=== PATIENT | male | born 1990 | race Hispanic/Latino ===

== ENCOUNTER 2024-05-19 16:08 | Inpatient (IN) | payer SELFPAY ==
[~2024-05-19] VITALS: Ht 172.7 cm; Wt 85.6 kg
--- NOTE | 2024-05-19 16:16 | ERN ---
ED Note History of Present Illness Stated Complaint: NAUSEA\VOMITTING Chief Complaint: Nausea,Vomiting,Diarrhea Time Seen by MD: 16:11 Dictation: PATIENT IS A 33-YEAR-OLD MALE COMING IN TODAY WITH COMPLAINTS OF EPIGASTRIC PAIN WITH NAUSEA VOMITING ONSET WAS LAST NIGHT. NO FEVER NO CHILLS NO CHEST PAIN. PATIENT STATES HE DOES USE MARIJUANA FREQUENTLY AND SMOKED YESTERDAY. Allergies: Coded Allergies: No Known Drug Allergies (Unverified Allergy, Unknown, 05/19/24) Past Medical History RN Note Reviewed/Agreed w/PFSH: Yes Review of System Dictation CONSTITUTIONAL: NEGATIVE EXCEPT FOR HPI HEAD/FACE: NEGATIVE EXCEPT FOR HPI EENT: NEGATIVE EXCEPT FOR HPI RESPIRATORY: NEGATIVE EXCEPT FOR HPI GASTROINTESTINAL/ABDOMINAL: NEGATIVE EXCEPT FOR HPI EPIGASTRIC PAIN WITH NAUSEA VOMITING GENITOURINARY: NEGATIVE EXCEPT FOR HPI MUSCULOSKELETAL: NEGATIVE EXCEPT FOR HPI INTEGUMENTARY: NEGATIVE EXCEPT FOR HPI NEUROLOGICAL/PSYCH: NEGATIVE EXCEPT FOR HPI HEMATOLOGIC/LYMPHATIC: NEGATIVE EXCEPT FOR HPI ALL SYSTEMS NEGATIVE, EXCEPT NOTED ABOVE. 13 POINT REVIEW OF SYSTEMS ASSESSED AND ALL NEGATIVE EXCEPT FOR ABOVE. Initial Vital Sign VS Vital Signs Date Time Temp Pulse Resp B/P (MAP) Pulse Ox O2 Delivery O2 Flow Rate FiO2 05/19/24 16:10 97.3 0 05/19/24 17:45 71 20 152/83 100 Room Air* 21 Physical Exam Dictation VITAL SIGNS REVIEWED GENERAL APPEARANCE: ALERT, ORIENTED X 3, PATIENT NOW ALERT SOMNOLENT. HEAD AND FACE: NON-TRAUMATIC. EYES: PERRL, PINK CONJUNCTIVAS, EYELID NO TRAUMA, ANTERIOR CHAMBER WITH ARCUS SENILIS. EARS: PINNAS INTACT AND NO SIGNS OF TRAUMA OR ERYTHEMA EAR CANALS CLEAR AND NO DISCHARGE TM NO ERYTHEMA NOSE: NO DISCHARGE, NO BLEEDING. OROPHARYNX: MOUTH NORMAL, TONGUE PINK, PHARYNX CLEAR,NO ERYTHEMA, TONSILS NO EXUDATES, NO ABSCESSES NOTED, MUCOUS MEMBRANE MOIST NECK: SUPPLE, NON-TENDER, NO THYROMEGALY, NO MASSES, NO JVD, NO BRUITS BREAST:DEFERRED CHEST:NO TENDERNESS, NO CREPITUS, NO PARADOXICAL MOVEMENT, NO RETRACTIONS LUNGS:CLEAR, WELL-VENTILATED, SYMMETRIC, NO RALES, NO WHEEZING, NO RHONCHI, NO STRIDOR, GOOD BREATH SOUNDS BILATERALLY HEART: REGULAR RATE, REGULAR RHYTHM, NO MURMUR, NO GALLOPS VASCULAR: NO PERIPHERAL EDEMA, ABDOMEN: SOFT, POSITIVE BOWEL SOUNDS, NONDISTENDED, NO GUARDING, EPIGASTRIC TENDERNESS WITH PALPATION, NO REBOUND, NO MASSES NO HEPATOMEGALY, NO SPLENOMEGALY, NO ADKINS'S SIGN, NO HERNIAS. RECTAL: DEFERRED GENITAL: DEFERRED NEUROLOGICAL: NORMAL SPEECH, MOTOR FUNCTION INTACT, SENSORY FUNCTION INTACT MUSCULOSKELETAL: NECK NONTENDER, FULL RANGE OF MOTION, BACK NONTENDER, FULL RANGE OF MOTION, EXTREMITIES: NONTENDER, FULL RANGE OF MOTION SKIN: COLOR PINK, DRY, NO TURGOR, NO RASH, NO LACERATIONS, NO ABRASIONS, NO CONTUSIONS. LYMPHATIC: DEFERRED Results (Laboratory/Radiology) Laboratory/Radiology Laboratory Tests Test 05/19/24 16:22 05/19/24 16:59 Urine Color YELLOW (YELLOW) Urine Appearance CLEAR (CLEAR) Urine pH 5.5 (5.0-8.0) Urine Specific [place] 1.029 (1.001-1.031) Urine Protein 20 mg/dL (NEGATIVE) H Urine Glucose (UA) NEGATIVE mg/dL (NEGATIVE) Urine Ketones 100 mg/dL (NEGATIVE) H Urine Occult Blood NEGATIVE (NEGATIVE) Urine Nitrate NEGATIVE (NEGATIVE) Urine Bilirubin NEGATIVE mg/dL (NEGATIVE) Urine Urobilinogen 0.2 mg/dL (0.2-1.0) Urine Leukocyte Esterase NEGATIVE Janene/uL Urine RBC 0-1 /HPF (0-1) Urine WBC 0-1 /HPF (0-1) Urine Squamous Epithelial Cells RARE /HPF (0-2) Urine Bacteria None /HPF (None Seen) Urine Opiates Screen NEGATIVE (NEGATIVE) Urine Barbiturates Screen NEGATIVE (NEGATIVE) Urine Phencyclidine Screen NEGATIVE (NEGATIVE) Urine Amphetamines Screen NEGATIVE (NEGATIVE) Urine Benzodiazepines Screen POSITIVE (NEGATIVE) H Urine Cocaine Screen NEGATIVE (NEGATIVE) Urine Marijuana (THC) Screen POSITIVE (NEGATIVE) H White Blood Count 12.6 K/uL (4.8-10.8) H Red Blood Count 5.66 MIL/uL (4.50-6.20) Hemoglobin 16.1 g/dL (14.0-18.0) Hematocrit 47.5 % (42-54) Mean Corpuscular Volume 83.9 fL (79-99) Mean Corpuscular Hemoglobin 28.4 pg (27.0-33.0) Mean Corpuscular Hemoglobin Concent 33.9 g/dL (32.0-36.0) Red Cell Distribution Width 12.7 % (11.0-15.5) Platelet Count 276 K/uL (130-400) Mean Platelet Volume 9.4 fL (7.5-10.5) Immature Granulocyte % (Auto) 0.4 % (0-1) Neutrophils (%) (Auto) 89.8 % (40.0-77.0) H Lymphocytes (%) (Auto) 7.4 % (21.0-51.0) L Monocytes (%) (Auto) 2.2 % (3.0-13.0) L Eosinophils (%) (Auto) 0.0 % (0.0-8.0) Basophils (%) (Auto) 0.2 % (0.0-5.0) Neutrophils # (Auto) 11.3 K/uL (1.8-7.7) H Lymphocytes # (Auto) 0.9 K/uL (1.0-4.8) L Monocytes # (Auto) 0.3 K/uL (0.1-1.0) Eosinophils # (Auto) 0.00 K/uL (0.00-0.70) Basophils # (Auto) 0.03 K/uL (0.00-0.20) Absolute Immature Granulocyte (auto 0.05 K/uL (0-1) Nucleated Red Blood Cells 0.0 % (0.0-0.19) White Cell Morphology Comment See comments Sodium Level 142 mmol/L (136-145) Potassium Level 3.7 mmol/L (3.5-5.1) Chloride Level 104 mmol/L (101-111) Carbon Dioxide Level 26 mmol/L (21-32) Blood Urea Nitrogen 19 mg/dL (7-18) H Creatinine 1.1 mg/dL (0.5-1.3) Glomerular Filtration Rate Calc 90 mL/min (>90) Random Glucose 136 mg/dL (70-105) H Total Calcium 9.3 mg/dL (8.5-10.1) Lipase 25 U/L (16-77) Labs Reviewed?: Yes ED Course ED Course Orders Procedure Category Date Status Time Cbc With Differential LAB 05/19/24 Complete 16:14 Urinalysis Profile LAB 05/19/24 Complete 16:14 0.9%Nacl 1000ml (Ns PHA 05/19/24 Complete 1000ml) 16:30 Ondansetron 4mg Inj PHA 05/19/24 Complete (Zofran 4mg Inj) 16:30 Famotidine 20mg Vial PHA 05/19/24 Complete (Pepcid 20mg Vial) 16:30 Lipase LAB 05/19/24 Complete 16:14 Basic Metabolic Panel LAB 05/19/24 Complete 16:14 Metoclopramide 10 PHA 05/19/24 Complete Mg/2 Ml Vial (Reglan 1 17:30 Drug Screen Urine LAB 05/19/24 Complete 17:24 Admit Orders ADM 05/19/24 Transmitted 18:29 Edm Admit Bridge Order ADM 05/19/24 Transmitted 18:29 Current Medications Medications (Trade) Dose Ordered Sig/Mary Ann Route PRN Reason Start Time Stop Time Status Last Admin Dose Admin Famotidine (Pepcid 20mg Vial) 20 mg ONCE ONCE IV 05/19/24 16:30 05/19/24 16:31 DC 05/19/24 16:37 Metoclopramide HCl (regLAN 10MG IV) 10 mg ONCE ONCE IVP 05/19/24 17:30 05/19/24 17:31 DC 05/19/24 17:43 Ondansetron HCl (zoFRAN 4MG INJ) 4 mg ONCE ONCE IVP 05/19/24 16:30 05/19/24 16:31 DC 05/19/24 16:37 Sodium Chloride 1,000 ml @ 0 mls/hr ONCE ONCE IV 05/19/24 16:30 05/19/24 16:31 DC 05/19/24 16:37 Vital Signs Date Time Temp Pulse Resp B/P (MAP) Pulse Ox O2 Delivery O2 Flow Rate FiO2 05/19/24 17:45 99.3 71 20 152/83 100 Room Air* 0 21 05/19/24 16:10 97.3 0 1807/PATIENT CONTINUES TO COMPLAIN OF EPIGASTRIC PAIN WITH NAUSEA. PATIENT HAS BEEN GIVEN1 L FLUIDS WITH ZOFRAN AND REGLAN WITH PEPCID, WE WILL ADMIT PATIENT FOR INTRACTABLE VOMITING, ALSO STATES HIS LAST THC INTAKE WAS A WEEK AGO STATE SHE HAS T DOES BARS/BENZODIAZEPINE TO SLEEP. STATES HE GET THESE IN [place] SPOKE TO DR. [facility] AND HE AGREED TO ADMIT PATIENT AFTER REVIEWING LABS AND INTERVENTIONS FOR NAUSEA VOMITING TO INCLUDE PEPCID/REGLAN/ZOFRAN/PEPCID Medical Decision Making MDM MDM: DIFFERENTIAL DIAGNOSIS: EPIGASTRIC PAIN/NAUSEA VOMITING/DEHYDRATION/ELECTROLYTE IMBALANCE/DRUG ABUSE RATIONALE: TESTS CONSIDERED AND ORDERED SECONDARY TO SHARED DECISION MAKING INCLUDE: LABS, PREVIOUS OUTSIDE RECORDS REVIEWED: OLD ER VISITS. REVIEWED RISK OF COMPLICATION AND/OR MORBIDITY OR MORTALITY OF PATIENT MANAGEMENT: [id number], PATIENT NEEDS TO STAY TO CONTINUE FLUID RESUSCITATION AND MANAGEMENT OF HIS NAUSEA MEDICATIONS-PER MEDICATION RECONCILIATION NEED FOR HOSPITALIZATION: PATIENT DOES MEET CRITERIA FOR HOSPITALIZATION. SEE ABOVE NEED FOR EMERGENCY MAJOR/MINOR SURGERY: NO THERE ARE NO SOCIAL CONCERNS WITH THIS PATIENT. POLYDRUG ABUSE TO INCLUDE BENZODIAZEPINES AND MARIJUANA PRESCRIPTION DRUG MANAGEMENT NONE PRESCRIPTIONS WILL INCLUDE SYMPTOMATIC CARE PATIENT'S PRIOR EXTERNAL MEDICAL RECORDS FROM OTHER ER VISITS WERE REVIEWED BY ME INDICATED. PRIOR TESTING AND RESULTS FROM PREVIOUS VISITS WERE REVIEWED. PRIOR TESTS WERE TAKEN INTO ACCOUNT WITH MEDICAL DECISION MAKING AND RESOURCE UTILIZATION, INDEPENDENT HISTORIAN/HISTORIANS WERE USED TO OBTAIN COMPLETE MEDICAL HISTORY. I INDEPENDENTLY INTERPRETED THE TEST THAT WERE PERFORMED, RESULTS WERE REVIEWED BY ME AND CONSIDERED FINDINGS ON RADIOLOGY IF ORDERED. MEDICAL MANAGEMENT AND EXAMINATION INTERPRETATION DISCUSSIONS WERE HAD BY ME WITH OTHER QUALIFIED HEALTHCARE PROFESSIONALS INDICATED FOR THE PATIENT'S CARE. DX & DISP Disposition: Inpatient Decision to Admit Time: 18:11 Departure Impression: Primary Impression: Intractable vomiting with nausea Additional Impressions: Dehydration, Polydrug abuse, Gastritis Condition: Stable Time of Disposition: 18:11 I have reviewed the case, and I agree with, Diagnosis and Plan MARICRUZ BOWER NP May 19, 2024 16:16
[2024-05-19 16:29] LABS: ADD UA MICROSCOPIC YES; APPEARANCE,URINE CLEAR (CLEAR); BILIRUBIN,URINE NEGATIVE (NEGATIVE); COLOR,URINE YELLOW (YELLOW); GLUCOSE, URINE (UA) NEGATIVE (NEGATIVE); KETONES,URINE 100 mg/dL (NEGATIVE); LEUKOCYTE ESTERASE ,URINE NEGATIVE Leu/uL (NEGATIVE); NITRATE,URINE NEGATIVE (NEGATIVE); OCCULT BLOOD,URINE NEGATIVE (NEGATIVE); PH,URINE 5.5 (5.0-8.0); PROTEIN,URINE 20 mg/dL (NEGATIVE); UROBILINOGEN,URINE 0.2 mg/dL (0.2-1.0)
[2024-05-19 16:30] LABS: MUCUS,URINE MOD LPF (None Seen); RBC,URINE 0-1 /HPF (0-1); SQUAMOUS EPITHELIAL CELL,UR RARE /HPF (0-2); WBC,URINE 0-1 /HPF (0-1)
[2024-05-19] MEDS: FAMOTIDINE 20MG VIAL IV ONE (16:37)
[2024-05-19] MEDS: ondanSETRON 4MG INJ IVP ONE (16:37)
[2024-05-19] MEDS: 0.9%NACL 1000ML 1,000 ML IV ONE (16:37)
[2024-05-19 17:06] LABS: BASOPHILS # (AUTO) 0.03 K/uL (0.00-0.20); BASOPHILS % (AUTO) 0.2 % (0.0-5.0); HEMATOCRIT 47.5 % (42-54); IMMATURE GRANULOCYTE ABSOLUTE 0.05 K/uL (0-1); LYMPHOCYTES # (AUTO) 0.9 K/uL (1.0-4.8); LYMPHOCYTES % (AUTO) 7.4 % (21.0-51.0); MEAN CORPUSCULAR HEMOGLOBIN 28.4 pg (27.0-33.0); MEAN CORPUSCULAR HGB CONC 33.9 g/dL (32.0-36.0); MEAN CORPUSCULAR VOLUME 83.9 fL (79-99); MONOCYTES # (AUTO) 0.3 K/uL (0.1-1.0); MONOCYTES % (AUTO) 2.2 % (3.0-13.0); NEUTROPHILS # (AUTO) 11.3 K/uL (1.8-7.7); NEUTROPHILS % (AUTO) 89.8 % (40.0-77.0); PLATELET COUNT (AUTO) 276 K/uL (130-400); RED BLOOD CELL COUNT(AUTO) 5.66 MIL/uL (4.50-6.20); RED CELL DISTRIBUTION WIDTH 12.7 % (11.0-15.5); WHITE BLOOD COUNT (AUTO) 12.6 K/uL (4.8-10.8)
[2024-05-19 17:17] LABS: CREATININE 1.1 mg/dL (0.5-1.3); POTASSIUM 3.7 mmol/L (3.5-5.1)
[2024-05-19] MEDS: metoCLOPRAmide 10 MG/2 ML VIAL IVP ONE (17:43)
[2024-05-19 17:56] LABS: AMPHET/METH SCREEN,URINE NEGATIVE (NEGATIVE); BARBITURATE SCREEN, URINE NEGATIVE (NEGATIVE); BENZODIAZEPINES SCREEN,URINE POSITIVE (NEGATIVE); CANNABINOID SCREEN,URINE POSITIVE (NEGATIVE); COCAINE SCREEN,URINE NEGATIVE (NEGATIVE); OPIATE SCREEN,URINE NEGATIVE (NEGATIVE); PHENCYCLIDINE SCREEN,URINE NEGATIVE (NEGATIVE)
[2024-05-19] MEDS ORDERED: acetaMINOPHEN 325 MG TAB PO PRN ×2 (20:00)
[2024-05-19] MEDS ORDERED: acetaMINOPHEN WITH coDEINE 1 TAB TAB PO PRN (20:00)
--- NOTE | 2024-05-19 20:08 | NUR ---
PATIENT TO CT
[2024-05-19] MEDS: 0.9%NACL 1000ML 1,000 ML IV SCH (21:10)
[2024-05-19] MEDS: FAMOTIDINE 20MG VIAL IV SCH (21:11)
[2024-05-19] MEDS: cefTRIAXone 1G VIAL IV SCH (21:11)
[2024-05-19] MEDS: ondanSETRON 4MG INJ IV PRN (21:11)
[2024-05-19] MEDS: PROMETHAZINE HCL 25 MG/ML 1ML AMPULE IM ONE ×2 (21:47→21:48)
--- NOTE | 2024-05-19 21:49 | HP ---
[facility] HISTORY AND PHYSICAL Date of Service: May 19, 2024 Time of Service: 21:49 HISTORY OF PRESENT ILLNESS: [33 year old male presents with complaints of epigrastric pain, intractable nausea and vomiting onset last night. Patient reports similar symptoms in the past that are usually exacerbated when smoking marijuana and he reports he smoked yesterday. Patient denies chills, fever, chest pain, shortness of breath, diarrhea. Patient is awake, alert and oriented. He appears comfortable in no acute distress. In the ER, he was IV hydrated and started on Zofran and Phenergan for nausea and vomiting. His current vital signs include temperature of 97.9, heart rate of 64, respiration rate of 20, blood pressure of 117/84 and oxygen saturation of 100%. His blood work up is unremarkable except for leukocytosis of 12.6 with left shift of 89.8. CT of the abdomen is pendind. Patient will be admitted to [facility] under hospitalist for further evaluation and treatment. ] REVIEW OF SYSTEMS CONSTITUTIONAL: Denies fevers, chills, or night sweats. No unintentional weight loss reported. NEUROLOGICAL: Denies headache, amaurosis fugax, motor weakness, sensory deficit, vertigo/spinning sensation, gait abnormalities, or tremors. ENT: No hearing loss, otalgia, otorrhea, rhinitis, rhinorrhea, hoarseness, or sore throat. CARDIOVASCULAR: Denies any exertional angina, dyspnea on exertion, orthopnea, paroxysmal nocturnal dyspnea, palpitations, life-threatening arrhythmias, claudication. PULMONARY: Denies any shortness of breath, cough, phlegm/sputum, hemoptysis, pleuritic chest pain. SLEEP: Denies morning headaches, daytime somnolence or napping. Denies difficulty falling asleep, staying asleep, waking from sleep. Denies knowledge of snoring. GASTROINTESTINAL: Denies any type of dysphagia to either liquids or solids. Positive for nausea, vomiting, abdominal pain. Denies diarrhea, constipation, or changes in stool consistency or caliber. Denies coffee-ground emesis, hematemesis, hematochezia, or melanotic stools. GENITOURINARY: Denies frequency, urgency, nocturia, hematuria or incontinence (Storage/Irritative symptoms.) Low urinary stream, straining to void, urinary intermittency or hesitancy, splitting of the voiding stream, terminal dribbling. ENDOCRINOLOGIC: Denies polyuria, polydipsia, polyphagia or heat/cold intolerances. HEMATOLOGIC: Denies thrombophilia/previous clots, or coagulopathy/bleeding disorders. ONCOLOGIC: Denies personal history of malignancy. DERMATOLOGIC: Denies rashes or pruritus. PSYCHIATRIC: Denies any suicidal or homicidal ideation. Denies hallucinations. PAST MEDICAL HISTORY: [ Polysubstance abuse ] PAST SURGICAL HISTORY: [ Non-reported ] PAST SOCIAL HISTORY: [ Patient denies the use of tobbacco or alcohol products. Patient reports the use of benzodiazepine and marijuana ] FAMILY HISTORY: [Non-reported ] Coded Allergies: No Known Drug Allergies (Unverified Allergy, Unknown, 05/19/24) PHYSICAL EXAM GENERAL APPEARANCE: The patient is awake, alert, and oriented, in no acute cardiopulmonary distress. NEUROLOGICAL: Cranial nerves II-XII grossly intact. Motor is 5/5 in bilateral upper and lower extremities proximal to distal. No sensory deficits. HEENT: Face is symmetric. Pupils are equal and reactive. Extraocular movements are intact. NECK: Supple. No JVD. No thyromegaly. No submental, submandibular, pre- /postauricular, occipital or supraclavicular lymphadenopathy. CHEST: Normal chest expansion. No Telemetry. LUNGS: Absence of any rales, rhonchi or any wheezing. CARDIOVASCULAR: Regular. S1 and S2 normal. No appreciable rubs, murmurs or gallops. ABDOMEN: Soft, nontender, and nondistended. There is no rebound, voluntary guarding, or rigidity. : Deferred. No Mendes. EXTREMITIES: Non-edematous and not cyanotic. No clubbing. Good capillary refill. SKIN: No skin breakdown. Vital Sign (Last 24 Hours) 05/19/24 21:36 Temp 100.0 Pulse 64 Resp 20 B/P (MAP) 117/84 Pulse Ox 100 O2 Delivery Room Air* O2 Flow Rate 0 FiO2 21 LABS: Laboratory: Test 05/19/24 16:59 05/19/24 16:22 Range/Units White Blood Count 12.6 H 4.8-10.8 K/uL Red Blood Count 5.66 4.50-6.20 MIL/uL Hemoglobin 16.1 14.0-18.0 g/dL Hematocrit 47.5 42-54 % Mean Corpuscular Volume 83.9 79-99 fL Mean Corpuscular Hemoglobin 28.4 27.0-33.0 pg Mean Corpuscular Hemoglobin Concent 33.9 32.0-36.0 g/dL Red Cell Distribution Width 12.7 11.0-15.5 % Platelet Count 276 130-400 K/uL Mean Platelet Volume 9.4 7.5-10.5 fL Immature Granulocyte % (Auto) 0.4 0-1 % Neutrophils (%) (Auto) 89.8 H 40.0-77.0 % Lymphocytes (%) (Auto) 7.4 L 21.0-51.0 % Monocytes (%) (Auto) 2.2 L 3.0-13.0 % Eosinophils (%) (Auto) 0.0 0.0-8.0 % Basophils (%) (Auto) 0.2 0.0-5.0 % Neutrophils # (Auto) 11.3 H 1.8-7.7 K/uL Lymphocytes # (Auto) 0.9 L 1.0-4.8 K/uL Monocytes # (Auto) 0.3 0.1-1.0 K/uL Eosinophils # (Auto) 0.00 0.00-0.70 K/uL Basophils # (Auto) 0.03 0.00-0.20 K/uL Absolute Immature Granulocyte (auto 0.05 0-1 K/uL Nucleated Red Blood Cells 0.0 0.0-0.19 % White Cell Morphology Comment See comments Sodium Level 142 136-145 mmol/L Potassium Level 3.7 3.5-5.1 mmol/L Chloride Level 104 101-111 mmol/L Carbon Dioxide Level 26 21-32 mmol/L Blood Urea Nitrogen 19 H 7-18 mg/dL Creatinine 1.1 0.5-1.3 mg/dL Glomerular Filtration Rate Calc 90 >90 mL/min Random Glucose 136 H 70-105 mg/dL Total Calcium 9.3 8.5-10.1 mg/dL Lipase 25 16-77 U/L Urine Color YELLOW YELLOW Urine Appearance CLEAR CLEAR Urine pH 5.5 5.0-8.0 Urine Specific [place] 1.029 1.001-1.031 Urine Protein 20 H NEGATIVE mg/dL Urine Glucose (UA) NEGATIVE NEGATIVE mg/dL Urine Ketones 100 H NEGATIVE mg/dL Urine Occult Blood NEGATIVE NEGATIVE Urine Nitrate NEGATIVE NEGATIVE Urine Bilirubin NEGATIVE NEGATIVE mg/dL Urine Urobilinogen 0.2 0.2-1.0 mg/dL Urine Leukocyte Esterase NEGATIVE NEGATIVE Janene/uL Urine RBC 0-1 0-1 /HPF Urine WBC 0-1 0-1 /HPF Urine Squamous Epithelial Cells RARE 0-2 /HPF Urine Bacteria None None Seen /HPF Urine Opiates Screen NEGATIVE NEGATIVE Urine Barbiturates Screen NEGATIVE NEGATIVE Urine Phencyclidine Screen NEGATIVE NEGATIVE Urine Amphetamines Screen NEGATIVE NEGATIVE Urine Benzodiazepines Screen POSITIVE H NEGATIVE Urine Cocaine Screen NEGATIVE NEGATIVE Urine Marijuana (THC) Screen POSITIVE H NEGATIVE Current Medications Medications (Trade) Dose Ordered Sig/Mary Ann Route PRN Reason Start Time Stop Time Status Last Admin Dose Admin Acetaminophen (TYLenol 325MG TAB) 650 mg Q4H PRN PO MILD PAIN (1-3) 05/19/24 20:00 06/18/24 19:59 Acetaminophen (TYLenol 325MG TAB) 650 mg Q6H PRN PO TEMPERATURE GREATER THAN 101.5 05/19/24 20:00 06/18/24 19:59 Acetaminophen/ Codeine Phosphate (TYLenol-coDEINE TAB) 1 tab Q6H PRN PO MODERATE PAIN (4-6) 05/19/24 20:00 06/18/24 19:59 Acetaminophen/ Codeine Phosphate (TYLenol-coDEINE TAB) 2 tab Q6H PRN PO SEVERE PAIN (7-10) 05/19/24 20:00 06/18/24 19:59 Ceftriaxone Sodium (ROCEphine 1G INJ) 1 gm Q24H IV 05/19/24 20:00 05/29/24 19:59 05/19/24 21:11 1 GM Famotidine (Pepcid 20mg Vial) 20 mg BID IV 05/19/24 21:00 06/18/24 20:59 05/19/24 21:11 20 MG Ondansetron HCl (zoFRAN 4MG INJ) 4 mg Q6H PRN IV NAUSEA/VOMITING 05/19/24 20:00 06/18/24 19:59 05/19/24 21:11 4 MG Sodium Chloride 1,000 ml @ 100 mls/hr Q10H IV 05/19/24 20:00 06/18/24 19:59 05/19/24 21:10 100 MLS/HR DIAGNOSTICS / RADIOLOGY: [ ] ASSESSMENT: [Intractable vomiting with nausea POA Dehydration POA Leukocytosis POA Gastritis POA Polydrug abuse] PLAN: [Admit to medical surgical Patient will be kept NPO for now, once nausea/vomiting subside patient can have clear liquid diet Continue with IV fluids with NS at 75 mL/hour Patient was given Protonix 40 mg IV once in ER, and started on famotidine 20 mg IV BID For leukocytosis, patient was started empirically on Rocephin 1 g IV once daily. We will renally dose medication and avoid nephrotoxic Obtain A1C, if needed monitor blood sugar with A.C. and HS glucometer and insulin sliding scale We will monitor electrolytes and replete as necessary We will order CT abdomen and pelvis GI and DVT prophylaxis and PRN medication as needed for pain, nausea or vomiting. We will repeat labs CBC and CMP tomorrow ] Current Medications Medications (Trade) Dose Ordered Sig/Mary Ann Route PRN Reason Start Time Stop Time Status Last Admin Acetaminophen (TYLenol 325MG TAB) 650 mg Q6H PRN PO TEMPERATURE GREATER THAN 101.5 05/19/24 20:00 06/18/24 19:59 Acetaminophen (TYLenol 325MG TAB) 650 mg Q4H PRN PO MILD PAIN (1-3) 05/19/24 20:00 06/18/24 19:59 Ondansetron HCl (zoFRAN 4MG INJ) 4 mg Q6H PRN IV NAUSEA/VOMITING 05/19/24 20:00 06/18/24 19:59 05/19/24 21:11 Sodium Chloride 1,000 ml @ 100 mls/hr Q10H IV 05/19/24 20:00 06/18/24 19:59 05/19/24 21:10 Famotidine (Pepcid 20mg Vial) 20 mg BID IV 05/19/24 21:00 06/18/24 20:59 05/19/24 21:11 Acetaminophen/ Codeine Phosphate (TYLenol-coDEINE TAB) 1 tab Q6H PRN PO MODERATE PAIN (4-6) 05/19/24 20:00 06/18/24 19:59 Acetaminophen/ Codeine Phosphate (TYLenol-coDEINE TAB) 2 tab Q6H PRN PO SEVERE PAIN (7-10) 05/19/24 20:00 06/18/24 19:59 05/19/24 21:55 Ceftriaxone Sodium (ROCEphine 1G INJ) 1 gm Q24H IV 05/19/24 20:00 05/29/24 19:59 05/19/24 21:11 ADVANCED CARE PLANNING 1. Which of the following were discussed? Hospice Care - Yes / No Therapeutic options - Yes / No Advance Directives - Yes / No Other discussions - 2. Discussed with who? patient 3. Voluntary nature of this service was explained to the patient? Yes / No 4. Amount of time spent - __25 min 5. Reviewed by Physician? (if this service was performed by NPP) Yes / No ATTESTATION BY PHYSICIAN I have seen and examined the patient. I reviewed the documentation, medical decision making, and treatment plan as noted by the mid-level provider above. I agree with the findings and plan of care. Dee Huston MD, MARIA I MACHINE CUTTER May 19, 2024 21:49
[2024-05-19] MEDS: acetaMINOPHEN WITH coDEINE 1 TAB TAB PO PRN (21:55)
[2024-05-19 22:10] VITALS: BP 157/85; PULSE 61; RESP 20; TEMP 97.8
[2024-05-20 04:00] VITALS: BP 105/53; PULSE 59; RESP 20; TEMP 98.4
[2024-05-20 06:57] LABS: BASOPHILS # (AUTO) 0.02 K/uL (0.00-0.20); BASOPHILS % (AUTO) 0.2 % (0.0-5.0); HEMATOCRIT 43.8 % (42-54); IMMATURE GRANULOCYTE ABSOLUTE 0.02 K/uL (0-1); LYMPHOCYTES % (AUTO) 19.6 % (21.0-51.0); MEAN CORPUSCULAR HEMOGLOBIN 27.7 pg (27.0-33.0); MEAN CORPUSCULAR HGB CONC 32.6 g/dL (32.0-36.0); MEAN CORPUSCULAR VOLUME 84.9 fL (79-99); MONOCYTES # (AUTO) 0.9 K/uL (0.1-1.0); MONOCYTES % (AUTO) 8.6 % (3.0-13.0); NEUTROPHILS # (AUTO) 7.3 K/uL (1.8-7.7); NEUTROPHILS % (AUTO) 71.4 % (40.0-77.0); PLATELET COUNT (AUTO) 245 K/uL (130-400); RED BLOOD CELL COUNT(AUTO) 5.16 MIL/uL (4.50-6.20); RED CELL DISTRIBUTION WIDTH 13.2 % (11.0-15.5); WHITE BLOOD COUNT (AUTO) 10.3 K/uL (4.8-10.8)
[2024-05-20 08:00] VITALS: BP 126/69; PULSE 67; RESP 18; TEMP 98.7; O2SAT 99
[2024-05-20 08:08] LABS: ALBUMIN 3.6 g/dL (3.5-5.0); BILIRUBIN,TOTAL 0.6 mg/dL (0.2-1.0); CREATININE 1.1 mg/dL (0.5-1.3); POTASSIUM 3.8 mmol/L (3.5-5.1); TOTAL PROTEIN, SERUM 7.1 g/dL (6.0-8.3)
[2024-05-20 08:21] LABS: ERYTHROCYTE SEDIMENTATION RATE 10 MM/HR (0-15)
--- NOTE | 2024-05-20 08:56 | HMCIMG ---
Exam Type: CT ABDOMEN/PELVIS W/O CONTRAST Clinical Information: intractable vomiting, epigastric pain Comparison: None CT Dose Index (CTDI): 10.20 mGy Dose Length Product (DLP): 530.00 total mGy-cm PROTOCOL: Routine noncontrast helical scanning of the abdomen and pelvis was performed at 5mm collimation. Findings: No evidence of nephro or ureterolithiasis is found. No hydronephrosis or ureteral dilatation is seen. The lung bases are clear. The stomach is unremarkable. It shows no wall thickening. No gross ulceration is seen. It is not overly distended. There are no surrounding inflammatory changes. No wall lesions are identified to suggest cancer. The spleen is unremarkable. It is not enlarged. The pancreas shows normal anatomy. It is not fatty replaced. It shows no lesions. The pancreatic duct is not dilated. The gallbladder is unremarkable. It shows no cholelithiasis. The gallbladder wall is normal in thickness. There is no pericholecystic fluid. The is no acute or chronic inflammation noted. The adrenal glands are unremarkable. There is no enlargement. No lesions are noted. The liver is unremarkable. It shows no focal masses. The appendix is unremarkable. It shows no evidence of inflammation. No appendicolith is seen. The small bowel is unremarkable. There is no evidence of dilatation to suggest obstruction. No evidence of adynamic ileus is seen. There is no small bowel wall thickening to suggest enteritis. The colon is unremarkable. The urinary bladder is unremarkable. There is no wall thickening to suggest tumor or inflammation. There are no intraluminal calculi. There are no diverticula. There is no evidence of chronic bladder outlet obstruction. There is no evidence of urinary bladder distention to suggest urinary retention. The other pelvic structures are unremarkable. The bony and vascular structures are unremarkable for the patient's age. IMPRESSION: NEGATIVE CT SCAN OF THE ABDOMEN AND PELVIS. NO RENAL STONES. NO ACUTE PATHOLOGY OR INFLAMMATION SEEN. This study was performed using dose reduction techniques to include automated exposure control and/or adjustment of the mA and/or kV according to patient size.
[2024-05-20 12:00] VITALS: BP 123/75; PULSE 61; RESP 18; TEMP 98.7
--- NOTE | 2024-05-20 15:30 | NUR ---
DCP Pt awake, alert, oriented romanian speaking. Pt states living alone in an apartment, previously independent, does not use or have medical equipment, and works in construction in [place]. Anticipates discharge is for home. Addendum: 05/20/24 at 1533 by LUZ MARIA WRIGHT RN CM Amended: Links added.
[2024-05-20 16:00] VITALS: BP 129/66; PULSE 67; RESP 17; TEMP 98.8
--- NOTE | 2024-05-20 17:02 | DS ---
Discharge Summary Hospital Course Summary: Patient is a 33-year-old male who presented to the ED with complaints of epigastric pain and intractable nausea and vomiting that began1 night ago. Patient reports similar symptoms in the past those usually exacerbated when smoking marijuana. Patient states he smoked yesterday. Patient denied chills, fever, chest pain, shortness of breath and diarrhea. The patient is awake alert and oriented. The patient appears comfortable and in no acute distress. Upon admission patient was given IV hydration and started on Zofran and Phenergan for nausea and vomiting and kept NPO. Today patient is afebrile normotensive and saturating well on room air. Patient labs are unremarkable. Patient electrolytes within normal range. Patient denies any nausea and vomiting. Patient had no overnight acute events. Patient's diet was advanced and well tolerated. Patient has been advised to abstain from marijuana use. Patient is hemodynamically stable and can be discharged today. Procedure(s): [place] [id number] [place] [address] [id number] IMAGING REPORT Signed PATIENT: SHREYA SMITH MR#: [id number] : 1990 SEX: M AGE: 33 LOCATION: [facility] ORDER 57 STATUS: ADM IN REPORT#: [id number] SERVICE 49 REASON: intractable vomiting, epigastric pain ORDERING PHYSICIAN: ALTAF BURROUGHS PROCEDURE: ABD PEL WO - CT ABDOMEN/PELVIS W/O CONTRAST Exam Type: CT ABDOMEN/PELVIS W/O CONTRAST Clinical Information: intractable vomiting, epigastric pain Comparison: None CT Dose Index (CTDI): 10.20 mGy Dose Length Product (DLP): 530.00 total mGy-cm PROTOCOL: Routine noncontrast helical scanning of the abdomen and pelvis was performed at 5mm collimation. Findings: No evidence of nephro or ureterolithiasis is found. No hydronephrosis or ureteral dilatation is seen. The lung bases are clear. The stomach is unremarkable. It shows no wall thickening. No gross ulceration is seen. It is not overly distended. There are no surrounding inflammatory changes. No wall lesions are identified to suggest cancer. The spleen is unremarkable. It is not enlarged. The pancreas shows normal anatomy. It is not fatty replaced. It shows no lesions. The pancreatic duct is not dilated. The gallbladder is unremarkable. It shows no cholelithiasis. The gallbladder wall is normal in thickness. There is no pericholecystic fluid. The is no acute or chronic inflammation noted. The adrenal glands are unremarkable. There is no enlargement. No lesions are noted. The liver is unremarkable. It shows no focal masses. The appendix is unremarkable. It shows no evidence of inflammation. No appendicolith is seen. The small bowel is unremarkable. There is no evidence of dilatation to suggest obstruction. No evidence of adynamic ileus is seen. There is no small bowel wall thickening to suggest enteritis. The colon is unremarkable. The urinary bladder is unremarkable. There is no wall thickening to suggest tumor or inflammation. There are no intraluminal calculi. There are no diverticula. There is no evidence of chronic bladder outlet obstruction. There is no evidence of urinary bladder distention to suggest urinary retention. The other pelvic structures are unremarkable. The bony and vascular structures are unremarkable for the patient's age. IMPRESSION: NEGATIVE CT SCAN OF THE ABDOMEN AND PELVIS. NO RENAL STONES. NO ACUTE PATHOLOGY OR INFLAMMATION SEEN. This study was performed using dose reduction techniques to include automated exposure control and/or adjustment of the mA and/or kV according to patient size. DICTATED BY: TRAMAINE LANGFORD MD DATE: 05/20/2453 ELECTRONICALLY SIGNED BY: TRAMAINE LANGFORD MD DATE: 05/20/2456 Assessment/Plan: ASSESSMENT: Intractable vomiting with nausea POA Dehydration POA Leukocytosis POA Gastritis POA Polydrug abuse - marijuana and benzodiazepines Discharge Instructions: Follow up with PCP in 3-5 days. Seek counseling for substance abuse. Home Medications: No Active Prescriptions or Reported Meds Medication Profile: No Active Prescriptions or Reported Meds Time spent arranging discharge: 1-30 minutes ATTESTATION BY PHYSICIAN I have seen and examined the patient. I reviewed the documentation, medical decision making, and treatment plan as noted by the resident provider above. I agree with the findings and plan of care. Balaji Huston MD, PRIYA N May 20, 2024 17:02
== END 2024-05-20 17:45 | disposition home or self-care (01) | DRG 392 ==
LOC: EDH 16:08 → EDHIP 16:09 → UNDOADMIN 18:29 → EDHIP 18:29 → 3DH 21:49 → EDHIP 21:49
PROVIDERS: ADMIT Hospitalist; ATTEND Hospitalist
DX: K29.70 Gastritis, unspecified, without bleeding (principal); E86.0 Dehydration; D72.829 Elevated white blood cell count, unspecified; F12.10 Cannabis abuse, uncomplicated; Z87.891 Personal history of nicotine dependence
CPT/HCPCS: 36415; 74176; 80048; 80053; 80305; 81001; 83690; 85025; 85651; 96372; 96374; 96375; 96376; 99285; G0378; J0696; J2405; J2550; J2765; J3490; J7030